=== PATIENT | female | born 1995 | race African-American/Black ===

== ENCOUNTER 2017-04-09 19:44 | Observation (INO) | payer OTHER ==
[~2017-04-09] VITALS: Ht 162.6 cm; Wt 72.6 kg
[~2017-04-09 19:44] MED LIST: CALC1TAB17 PO; IRON-15 PO; PREN-142 PO
[2017-04-09] MEDS ORDERED: NITR100C11 PO (20:55)
[2017-04-09] MEDS ORDERED: LACTATED RINGERS 1,000 ML IV SCH (21:00)
[2017-04-09] MEDS ORDERED: CITRIC ACID/SODIUM CITRATE SOLN 30ML UDC PO NR (21:00)
== END 2017-04-09 23:12 | disposition home or self-care (01) ==
LOC: L&D 19:44
PROVIDERS: ADMIT Obstetrics & Gynecology; ATTEND Obstetrics & Gynecology
DX: O26.892 Other specified pregnancy related conditions, second trimester (principal); O23.42 Unspecified infection of urinary tract in pregnancy, second trimester; M54.9 Dorsalgia, unspecified; R10.10 Upper abdominal pain, unspecified; Z3A.20 20 weeks gestation of pregnancy
CPT/HCPCS: 96360; 96361; 99281; G0378; J7120; 96365

== ENCOUNTER 2017-05-20 22:59 | Emergency (ER) | payer MEDICAID, OTHER ==
[~2017-05-20] VITALS: Ht 162.6 cm; Wt 70.9 kg
[~2017-05-20 22:59] MED LIST changes: -CALC1TAB17 PO; -IRON-15 PO; +NITR100C11 PO; -PREN-142 PO
[2017-05-20 23:11] VITALS: BP 116/69
== END 2017-05-21 01:30 | disposition left against medical advice (07) ==
LOC: ER 22:59
DX: Z53.21 Procedure and treatment not carried out due to patient leaving prior to being seen by health care provider (principal)

== ENCOUNTER 2017-05-27 08:05 | Observation (INO) | payer MEDICAID ==
[~2017-05-27] VITALS: Ht 162.6 cm; Wt 70.8 kg
[2017-05-27] MEDS ORDERED: ACETAMINOPHEN 500MG TABLET PO ONE (09:30)
[2017-05-27] MEDS ORDERED: FOLI-43 PO (10:07)
[2017-05-27] MEDS ORDERED: PREN-88 PO (10:08)
[2017-05-27] MEDS ORDERED: FERR-63 PO (10:09)
== END 2017-05-27 10:15 | disposition home or self-care (01) ==
LOC: L&D 08:05
PROVIDERS: ADMIT Obstetrics & Gynecology; ATTEND Obstetrics & Gynecology
DX: O26.892 Other specified pregnancy related conditions, second trimester (principal); R10.30 Lower abdominal pain, unspecified; M54.5 Low back pain; Z3A.27 27 weeks gestation of pregnancy
CPT/HCPCS: 99281; G0378

== ENCOUNTER 2017-05-31 03:06 | Observation (INO) | payer MEDICAID ==
[~2017-05-31] VITALS: Ht 162.6 cm; Wt 70.8 kg
[~2017-05-31 03:06] MED LIST changes: +FERR-63 PO; +FOLI-43 PO; +PREN-88 PO
[2017-05-31 05:06] LABS: CLARITY URINE CLEAR (CLEAR); COLOR URINE YELLOW (YELLOW); KETONES URINE NEGATIVE (NEGATIVE); LEUKOCYTE ESTERASE URINE TRACE (NEGATIVE); NITRITE URINE NEGATIVE (NEGATIVE); OCCULT BLOOD URINE NEGATIVE (NEGATIVE); PH URINE 6.5 (4.5-8.0); PROTEIN URINE NEGATIVE (NEGATIVE); SPECIFIC GRAVITY URINE 1.026 (1.005-1.030)
== END 2017-05-31 06:20 | disposition home or self-care (01) ==
LOC: L&D 03:06
PROVIDERS: ADMIT Specialist; ATTEND Specialist
DX: O26.892 Other specified pregnancy related conditions, second trimester (principal); R10.30 Lower abdominal pain, unspecified; Z3A.27 27 weeks gestation of pregnancy
CPT/HCPCS: 81001; 99281; G0378

== ENCOUNTER 2018-04-08 15:06 | Emergency (ER) | payer MEDICAID ==
[~2018-04-08] VITALS: Ht 162.6 cm; Wt 73.0 kg
[2018-04-08 19:57] VITALS: BP 129/80
[2018-04-08 20:04] LABS: CLARITY URINE CLOUDY (CLEAR); COLOR URINE YELLOW (YELLOW); KETONES URINE NEGATIVE (NEGATIVE); LEUKOCYTE ESTERASE URINE 3+ (NEGATIVE); NITRITE URINE NEGATIVE (NEGATIVE); OCCULT BLOOD URINE NEGATIVE (NEGATIVE); PH URINE 7.5 (4.5-8.0); PROTEIN URINE NEGATIVE (NEGATIVE); SPECIFIC GRAVITY URINE 1.023 (1.005-1.030)
== END 2018-04-08 23:01 | disposition left against medical advice (07) ==
LOC: ER 22:33
DX: M54.5 Low back pain (principal)
CPT/HCPCS: 81003; 81025; 99283; Z7610